=== PATIENT | female | born 1955 | race Caucasian/White ===

== ENCOUNTER 2017-04-11 09:26 | Outpatient (CLI) | payer BC | END 2017-04-11 09:27 | disposition home or self-care (01) | LOC: BICMAMMO 09:26 | PROVIDERS: ATTEND Obstetrics & Gynecology | DX: Z12.31 Encounter for screening mammogram for malignant neoplasm of breast (principal); Z80.3 Family history of malignant neoplasm of breast | CPT/HCPCS: 77063; 77067 ==

== ENCOUNTER 2018-02-18 11:48 | Outpatient (CLI) | payer MEDICARE ==
[2018-02-18 13:07] LABS: Hemoglobin 14.5 g/dL (12.0-16.0); Mean Corpuscular HGB CONC 34.2 g/dL (32.0-36.0); Mean Corpuscular Hemoglobin 32.4 pg (27.0-31.0); Mean Corpuscular Volume 94.8 fL (78.0-98.0); Mean Platelet Volume 7.2 fL (7.4-10.4); Platelet Count 342 thou/uL (130-400); RBC Distribution Width 11.5 % (11.5-14.5); Red Blood Cell (RBC) Count 4.47 mill/uL (4.20-5.40); White Blood Cell (WBC) Count 9.1 thou/uL (4.8-10.8)
[2018-02-18 13:29] LABS: Anion Gap 11 mmol/L (10-20); BUN (Urea Nitrogen) 24 mg/dL (9.8-20.1); Calc. Creatinine Clearance 0 mL/min (70-130); Calcium 10.1 mg/dL (7.8-10.44); Carbon Dioxide 29 mmol/L (23-31); Chloride 102 mmol/L (98-107); Estimated GFR-MDRD 58; Glucose 81 mg/dL (80-115); Potassium 4.2 mmol/L (3.5-5.1); Sodium 138 mmol/L (136-145)
--- NOTE | 2018-02-22 20:18 | EKG ---
Test Reason : Blood Pressure : / mmHG Vent. Rate : 068 BPM Atrial Rate : 068 BPM P-R Int : 134 ms QRS Dur : 088 ms QT Int : 394 ms P-R-T Axes : 068 068 073 degrees QTc Int : 418 ms Normal sinus rhythm Normal ECG No previous ECGs available Confirmed by Doug PENDLETON ([id number]) on 02/22/2018 8:17:49 PM Referred By: ORA Confirmed By:Doug PENDLETON
== END 2018-02-18 11:49 | disposition home or self-care (01) ==
LOC: LABBT 11:48
PROVIDERS: ATTEND Orthopaedic Surgery
DX: Z01.818 Encounter for other preprocedural examination (principal); G56.02 Carpal tunnel syndrome, left upper limb
CPT/HCPCS: 80048; 85027; 93005; 93010

== ENCOUNTER 2018-02-20 06:09 | Day surgery (SDC) | payer MEDICARE ==
--- NOTE | 2018-02-12 08:51 | HP ---
HISTORY OF PRESENT ILLNESS: The patient is a 62-year-old female with a 3-month history of pain and tingling in her left hand and wrist in the median nerve distribution. She feels like her symptoms are identical to previous symptoms she had in her right hand before carpal tunnel release 20 years ago at [facility] in [place]. She has had no injury. She has had persistent symptoms despite restriction of activities, use of a night splint, and also anti-inflammatory medication. PAST HISTORY: The patient is otherwise in good health. She has a history of hypothyroidism, hyperlipidemia, depression, and hypertension. CURRENT MEDICATIONS: Include: 1. Lexapro. 2. Fluticasone. 3. Tramadol. 4. Wellbutrin. 5. Synthroid. 6. Triamterene/hydrochlorothiazide. 7. Lipitor. 8. Celebrex. ALLERGIES: SHE IS ALLERGIC TO PENICILLIN, WHICH CAUSES A RASH. FAMILY HISTORY: Otherwise unremarkable. SOCIAL HISTORY: Otherwise unremarkable. REVIEW OF SYSTEMS: Otherwise unremarkable. PHYSICAL EXAMINATION: GENERAL: Reveals a healthy female. HEENT: Unremarkable. NECK: Supple. CHEST: Clear. HEART: Regular rate and rhythm. ABDOMEN: Soft and nontender. PELVIC: Deferred. RECTAL: Deferred. BREASTS: Deferred. EXTREMITIES: Pertinent findings in the left wrist; there is no swelling. There is some questionable thenar atrophy. There are no wounds. There is tenderness over the median nerve. There is full range of motion. Motor exam is intact. There is a positive Tinel's and negative Phalen's test. There is subjective numbness in median nerve distribution. There are good distal pulses. DIAGNOSTIC STUDIES: Electrodiagnostic studies are deferred since her symptoms are so classic. IMPRESSION: Left carpal tunnel syndrome. PLAN: Endoscopic possible open left carpal tunnel release. The nature of the surgery, length of recovery, potential complications such as infection, loss of motion, incomplete relief, nerve injury, recurrence, and need for additional treatment, repeat surgery have been discussed in detail. Job ID: [id number]
[2018-02-18 12:06] VITALS: BMI 28.0
--- NOTE | 2018-02-19 09:47 | HP ---
HISTORY OF PRESENT ILLNESS: The patient is a 62-year-old female with several-month history of pain and tingling in her left hand without injury. She has had persistent symptoms despite rest, restriction of activities, use of a night splint, and medications. She has had previous right carpal tunnel release 20 years ago, and her current symptoms are identical. The pain is now interfering with day-to-day activities and also interfering with sleep. PAST MEDICAL HISTORY: The patient is otherwise in good health. She has a history of hypothyroidism, depression, previous hypersensitivity pneumonitis, and hypertension. CURRENT MEDICATIONS: Include, 1. Lexapro. 2. Fluticasone. 3. Buspirone. 4. Wellbutrin. 5. Synthroid. 6. Triamterene. 7. Hydrochlorothiazide. 8. Trazodone. 9. Lipitor. ALLERGIES: SHE IS ALLERGIC TO PENICILLIN, WHICH CAUSES A RASH. FAMILY HISTORY: Otherwise unremarkable. SOCIAL HISTORY: Otherwise unremarkable. REVIEW OF SYSTEMS: Otherwise unremarkable. PHYSICAL EXAMINATION: GENERAL: Reveals a healthy female. HEENT: Unremarkable. NECK: Supple. CHEST: Clear. HEART: Regular rate and rhythm. ABDOMEN: Soft and nontender. PELVIC: Deferred. RECTAL: Deferred. BREASTS: Deferred. EXTREMITIES: Pertinent findings to the left upper extremity; examination of the left wrist reveals no swelling. There is some questionable thenar atrophy. There is tenderness over the median nerve. There is full range of motion of the left wrist. Motor exam is intact. There is a positive Tinel sign and negative Phalen test. There is subjective numbness in the median nerve distribution. Ulnar sensation is intact. No pain with range of motion of the elbow. DIAGNOSTIC DATA: Electrodiagnostic studies performed by Dr. Muñoz revealed moderately severe carpal tunnel syndrome and very slight cubital tunnel syndrome on the left, although clinically she is not having any symptoms of cubital tunnel. IMPRESSION: Left carpal tunnel syndrome. PLAN: Endoscopic possible open left carpal tunnel release. The nature of the surgery, length of recovery, and potential complications such as infection, loss of motion, incomplete relief, nerve injury, recurrence, and need for additional treatment and repeat surgery have been discussed in detail. Job ID: [id number]
[2018-02-20] MEDS ORDERED: Fentanyl 100 MCG/2 ML VIAL ONE ×2 (06:36→08:19)
[2018-02-20] MEDS ORDERED: Clindamycin/D5W 900 mg/50 ml Premix Bag ONE (06:57)
[2018-02-20] MEDS ORDERED: Bupivacaine PF 0.5% 30 ML VIAL ONE (07:00)
[2018-02-20] MEDS ORDERED: Lidocaine 1% (PF) 30 ML VIAL ONE (07:00)
[2018-02-20] MEDS ORDERED: HYDROcodone/Acetaminophen 5/325 mg Tablet ONE (10:04)
--- NOTE | 2018-02-20 14:40 | OP ---
DATE OF PROCEDURE: 02/20/2018 ANESTHESIA: General. PREOPERATIVE DIAGNOSIS: Left carpal tunnel syndrome. POSTOPERATIVE DIAGNOSIS: Left carpal tunnel syndrome. PROCEDURE PERFORMED: Left endoscopic carpal tunnel release. DESCRIPTION OF PROCEDURE: After satisfactory anesthesia was induced in the supine position, the patient was prepped and draped in the routine manner. Left arm was elevated, exsanguinated with an Esmarch bandage and the tourniquet was inflated to 250 mmHg. A 2 cm transverse incision was made in the proximal wrist flexion crease, carried down to subcutaneous tissues. Bleeding points were controlled with bipolar cautery. Using sharp and blunt dissection, a distally based flap at the deep forearm fascia was developed, retracted distally. Palmaris longus tendon was retracted radially. Proximally to the deep forearm fascia was split under direct visualization with small scissors to make sure there was no proximal impingement of the median nerve. Synovial elevator was introduced beneath the transverse carpal ligament and the synovium cleaned from the undersurface. Carpal tunnel dilators were inserted. The Nirvanixe endoscopic carpal tunnel system was introduced beneath the transverse carpal ligament along the ring finger. The distal edge of the ligament was easily identified and divided in a distal proximal direction by pulling the trigger at this time engaging the knife from withdrawing the scope proximally. This was done in several stages to make sure there was complete division of the transverse carpal ligament and this was documented with video printer. After withdrawing the scope, the carpal tunnel dilator could be inserted and the carpal tunnel and there were markedly improved passage and subcutaneous position of the instrument. The scope was reintroduced into the carpal tunnel. There was wide separation of the two leaves of the transverse carpal ligament. The tourniquet was released after 6 minutes. There was no excessive bleeding and the scope was withdrawn. The wound was copiously irrigated and the wound was closed with a running subcuticular 3-0 nylon. Sterile dressing was applied. The patient was immobilized in a Velcro wrist splint. She was awakened and taken to recovery room in stable condition. There were no apparent intraoperative complications. The estimated blood loss was negligible. The patient will be discharged home in satisfactory condition with an ice elevation and given written wound care instructions. She was given a prescription for [place] 5 for pain 30 tablets. She will be rechecked in my office in 10 to 14 days or sooner, if any problems prior to that time. Job ID: [id number]
[2018-02-20] MEDS ORDERED: Ondansetron PF 4 MG/2 ML Vial ONE (15:25)
[2018-02-20] MEDS ORDERED: PROPOFOL 200 MG/20 ML VIAL ONE (15:25)
[2018-02-20] MEDS ORDERED: Lidocaine 1% PF 5 ML VIAL ONE (15:25)
[2018-02-20] MEDS ORDERED: Succinylcholine Chloride 20 MG/ML 10 ml SYRINGE FS ONE (15:25)
== END 2018-02-20 10:25 | disposition home or self-care (01) ==
LOC: SDC 06:09
PROVIDERS: ATTEND Orthopaedic Surgery
PROC: 01N54ZZ Release Median Nerve, Percutaneous Endoscopic Approach (ICD-10-PCS; principal; 2018-02-20)
DX: G56.02 Carpal tunnel syndrome, left upper limb (principal); G56.22 Lesion of ulnar nerve, left upper limb; E03.9 Hypothyroidism, unspecified; F32.9 Major depressive disorder, single episode, unspecified; I10 Essential (primary) hypertension; Z88.0 Allergy status to penicillin; Z79.899 Other long term (current) drug therapy; Z98.890 Other specified postprocedural states
CPT/HCPCS: 96374; J2001; J2405; J2704; J3010; J3490; S0020

== ENCOUNTER 2018-04-16 08:04 | Outpatient (CLI) | payer MEDICARE ==
--- NOTE | 2018-04-16 10:31 | MRI ---
MRI CERVICAL SPINE WITHOUT CONTRAST: INDICATIONS: History of neck pain and stiffness. The patient has been having pain in the neck with rotation and t urning the head. The patient has had no known trauma or injury. COMPARISON: Prior radiograph of the cervical spine, dated 03/14/2018. TECHNIQUE: Multiplanar, multisequence MR images were obtained of the cervical spine without IV contrast. FINDINGS: The visualized posterior fossa and prevertebral soft tissues appear within normal limits. The cranio cervical junction appears within normal limits. At C2-C3, there is mild left facet joint degenerative change. At C3-C4, there is a broad-based bulge and mild facet joint degenerative change. At C4-C5, there is a mild broad-based bulge and mild facet joint degenerative change. At C5-C6, there is a mild broad-based bulge and mild facet joint degenerative change. At C6-C7, there is mild facet joint degenerative change but no appreciable central canal or neural fo raminal narrowing. At C7-T1, there is no appreciable central canal or neural foraminal narrowing. IMPRESSION: Mild spondylosis of the cervical spine. There is no appreciable central canal or neural foraminal na rrowing evident. Mild broad-based bulges are most pronounced at C3-C4 through C5-C6. POS: TPC
== END 2018-04-16 08:05 | disposition home or self-care (01) ==
LOC: SCSMRI 08:04
PROVIDERS: ATTEND Family Medicine
DX: M54.2 Cervicalgia (principal); M47.812 Spondylosis without myelopathy or radiculopathy, cervical region; M50.91 Cervical disc disorder, unspecified, high cervical region
CPT/HCPCS: 72141

== ENCOUNTER 2018-06-04 13:37 | Outpatient (CLI) | payer MEDICARE ==
--- NOTE | 2018-06-04 14:45 | MMO ---
Bilateral MAMMO Bilat Screen [facility]. CLINICAL HISTORY: Patient is 63 years old and is seen for screening. The patient has the following family history of breast cancer: mother, at age 65 and maternal grandmother, at age 66. The patient has no personal history of cancer. VIEWS: The views performed were: bilateral craniocaudal with tomosynthesis and bilateral mediolateral oblique with tomosynthesis. FILMS COMPARED: The present examination has been compared to prior imaging studies performed at [facility] on 04/23/2012, 11/25/2013, 02/03/2015, 03/23/2016 and 04/11/2017. MAMMOGRAM FINDINGS: There are scattered fibroglandular densities. There are no suspicious masses, suspicious calcifications, or new areas of architectural distortion. IMPRESSION: THERE IS NO MAMMOGRAPHIC EVIDENCE OF MALIGNANCY. A ROUTINE FOLLOW-UP MAMMOGRAM IN 1 YEAR IS RECOMMENDED. THE RESULTS OF THIS EXAM WERE SENT TO THE PATIENT. ACR BI-RADS Category 1 - Negative MAMMOGRAPHY NOTE: 1. A negative mammogram report should not delay a biopsy if a dominant of clinically suspicious mass is present. 2. Approximately 10% to 15% of breast cancers are not detected by mammography. 3. Adenosis and dense breasts may obscure an underlying neoplasm.
--- NOTE | 2018-06-04 14:45 | BD ---
BONE DENSITOMETRY USING DEXA: HISTORY: Postmenopausal screening for osteoporosis. FINDINGS: Lumbar Spine: BMD (g/cm2) L1 0.893 T-Score: -0.9 Z-Score: 0.7 L2 0.882 T-Score: -1.3 Z-Score: 0.4 L3 0.999 T-Score: -0.8 Z-Score: 1.1 L4 0.968 T-Score: -0.8 Z-Score: 1.1 L1-L4 0.940 T-Score: -1.0 Z-Score: 0.8 Femoral Neck: 0.750 T-Score: -0.9 Z-Score: 0.6 Total Femur: 1.057 T-Score: -0.9 Z-Score: 2.2 Impression: Normal bone mineral density. No evidence of osteopenia/sclerosis. POS: TPC
== END 2018-06-04 13:38 | disposition home or self-care (01) ==
LOC: BICMAMMO 13:37
PROVIDERS: ATTEND Family Medicine
DX: Z12.31 Encounter for screening mammogram for malignant neoplasm of breast (principal); Z13.820 Encounter for screening for osteoporosis; M85.88 Other specified disorders of bone density and structure, other site; Z80.3 Family history of malignant neoplasm of breast
CPT/HCPCS: 77063; 77067; 77080

== ENCOUNTER 2019-05-23 11:15 | Outpatient (CLI) | payer MEDICARE ==
--- NOTE | 2019-05-23 11:42 | RAD ---
Left ankle 3 views HISTORY: Left ankle 3 views HISTORY: Pain. No trauma. FINDINGS: Ankle mortise and talar dome are intact. Joint spaces preserved. No acute fracture, dislocation, or aggressive osseous erosions. Minimal osteophytosis. IMPRESSION : Minimal osteoarthritic changes. No acute osseous abnormalities are demonstrated.
== END 2019-05-23 11:16 | disposition home or self-care (01) ==
LOC: SCSRAD 11:15
PROVIDERS: ATTEND Internal Medicine Rheumatology
DX: M06.9 Rheumatoid arthritis, unspecified (principal); J84.114 Acute interstitial pneumonitis; M19.072 Primary osteoarthritis, left ankle and foot; Z92.25 Personal history of immunosuppression therapy; Z79.52 Long term (current) use of systemic steroids

== ENCOUNTER 2021-11-28 06:46 | Day surgery (SDC) | payer MEDICARE ==
[2021-11-28] MEDS ORDERED: PROPOFOL 200 MG/20 ML VIAL ONE (08:51)
[2021-11-28 11:14] VITALS: BMI 31.8
== END 2021-11-28 09:50 | disposition home or self-care (01) ==
LOC: SDC 06:46
PROVIDERS: ATTEND Internal Medicine Gastroenterology
PROC: 0D748ZZ Dilation of Esophagogastric Junction, Via Natural or Artificial Opening Endoscopic (ICD-10-PCS; principal; 2021-11-28)
PROC: 0D758ZZ Dilation of Esophagus, Via Natural or Artificial Opening Endoscopic (ICD-10-PCS; 2021-11-28)
DX: R13.10 Dysphagia, unspecified (principal); K44.9 Diaphragmatic hernia without obstruction or gangrene; J84.9 Interstitial pulmonary disease, unspecified; M06.9 Rheumatoid arthritis, unspecified; I10 Essential (primary) hypertension; Z79.890 Hormone replacement therapy; Z79.899 Other long term (current) drug therapy; Z88.0 Allergy status to penicillin; Z88.2 Allergy status to sulfonamides
CPT/HCPCS: J2704

== ENCOUNTER 2022-11-20 13:27 | Outpatient (CLI) | payer MEDICARE | END 2022-11-20 13:28 | disposition home or self-care (01) | LOC: SCSMRI 13:27 | PROVIDERS: ATTEND Internal Medicine | DX: R41.3 Other amnesia (principal) | CPT/HCPCS: 70551 ==